=== PATIENT | female | born 1980 | race Caucasian/White ===

== ENCOUNTER → 2021-10-29 | Outpatient (CLI) | payer OTHER ==
[2021-10-30 08:14] LABS: COMPLEMENT C3, SERUM 139 mg/dL (82-167); COMPLEMENT C4, SERUM 31 mg/dL (12-38); RHEUMATOID ARTHRITIS FACTOR <10.0 IU/mL (<14.0)
[2021-10-30 14:14] LABS: ALDOLASE 6.1 U/L (3.3-10.3)
== END ==
LOC: LAB 10:53
PROVIDERS: Nurse Practitioner Family
DX: M25.50 Pain in unspecified joint (principal); D89.9 Disorder involving the immune mechanism, unspecified; R76.8 Other specified abnormal immunological findings in serum; M79.10 Myalgia, unspecified site
CPT/HCPCS: 36415; 82085; 82550; 82728; 83520; 83615; 85652; 86140; 86160; 86162; 86200; 86431

== ENCOUNTER → 2022-06-25 | Outpatient (CLI) | payer OTHER | LOC: KOH-I 10:16 | DX: M79.672 Pain in left foot (principal) | CPT/HCPCS: 73630 ==